=== PATIENT | male | born 1950 | race Two or more races ===

== ENCOUNTER 2025-07-26 12:06 | Outpatient (CLI) | payer OTHER | END 2025-07-26 12:17 | disposition home or self-care (01) | LOC: RAD 12:06 | PROVIDERS: ATTEND Physical Medicine & Rehabilitation Hospice and Palliative Medicine | DX: M25.512 Pain in left shoulder (principal); M19.012 Primary osteoarthritis, left shoulder; M75.102 Unspecified rotator cuff tear or rupture of left shoulder, not specified as traumatic; M51.87 Other intervertebral disc disorders, lumbosacral region; M54.50 Low back pain, unspecified ==

== ENCOUNTER → 2025-08-18 10:18 | Outpatient (CLI) | payer OTHER | END | disposition home or self-care (01) | LOC: NUCLEAR 10:00 | DX: M85.89 Other specified disorders of bone density and structure, multiple sites (principal); Z13.820 Encounter for screening for osteoporosis; M81.0 Age-related osteoporosis without current pathological fracture ==